=== PATIENT | female | born 1995 | race Caucasian/White ===

== ENCOUNTER 2016-12-11 05:52 | Emergency (ER) | payer OTHER ==
[~2016-12-11] VITALS: Ht 167.6 cm; Wt 57.5 kg
[2016-12-11 06:09] VITALS: Ht 167.6 cm; Wt 57.5 kg
[2016-12-11] MEDS ORDERED: SOD CHLORIDE 0.9% 1,000 ML IV STA (06:36)
--- NOTE | 2016-12-11 06:56 | RADRPT ---
PROCEDURE: XR Chest. CLINICAL INDICATION: Chest pain TECHNIQUE: A single AP view of the chest was obtained. COMPARISON: None. FINDINGS: No focal airspace opacification, pleural effusion or pneumothorax is seen. The cardiomediastinal si lhouette is within normal limits for size. The osseous structures are unremarkable. IMPRESSION: No radiographic evidence of acute cardiopulmonary disease. RPTAT: HH .Pam Harris MD, MD Date Time Electronically viewed and signed by .Pam Harris MD, on 12/11/2016 06:56 .G/
[2016-12-11] MEDS ORDERED: LORAZEPAM 2 MG INJ IV ONE (07:00)
[2016-12-11 07:29] LABS: CHLORIDE 102 mmol/L (97-110); POTASSIUM 3.7 mmol/L (3.5-5.1); SODIUM 145 mmol/L (135-144)
[2016-12-11 07:32] LABS: ANION GAP 22 (8-16); BLOOD UREA NITROGEN 8 mg/dl (7-20); CARBON DIOXIDE 25 mmol/L (21-31); CREATININE 0.73 mg/dl (0.44-1.00); GLUCOSE 115 mg/dl (70-220)
[2016-12-11 07:33] LABS: CALCIUM 9.3 mg/dl (8.4-10.2)
[2016-12-11 07:34] LABS: BASOPHILS % 0.7 % (0.0-2.0); EOSINOPHILS % 0.5 % (0.0-7.0); HEMATOCRIT 43.5 % (37.0-47.0); HEMOGLOBIN 14.8 g/dl (12.0-16.0); LYMPHOCYTES % 27.8 % (15.0-51.0); MEAN CORPUSCULAR HEMOGLOBIN 32.6 pg (29.0-33.0); MEAN CORPUSCULAR HGB CONC 34.1 g/dl (32.0-37.0); MEAN CORPUSCULAR VOLUME 95.7 fl (82.0-101.0); MEAN PLATELET VOLUME 7.9 fl (7.4-10.4); MONOCYTE # 0.3 10^3/ul (0.3-0.9); MONOCYTES % 3.6 % (0.0-11.0); NEUTROPHIL # 4.8 10^3/ul (1.6-7.5); NEUTROPHILS % 67.4 % (39.0-77.0); PLATELET COUNT 320 10^3/UL (140-440); RED BLOOD COUNT 4.55 10^6/ul (4.20-5.40); RED CELL DISTRIBUTION WIDTH 12.5 % (11.5-14.5); UNCORRECTED WBC 7.2 10^3/ul (4.8-10.8); WHITE BLOOD COUNT 7.2 10^3/ul (4.8-10.8)
[2016-12-11 07:36] LABS: CONDITION 1
[2016-12-11 07:40] LABS: BARBITURATES Negative (NEGATIVE)
[2016-12-11 07:46] LABS: BENZODIAZEPINES Negative (NEGATIVE); COCAINE Positive (NEGATIVE); OPIATES Negative (NEGATIVE)
[2016-12-11 08:37] LABS: TROPONIN-I < 0.012 ng/ml (0.00-0.12)
--- NOTE | 2016-12-11 08:39 | ERD ---
ER Documentation Chief Complaint Date/Time DATE: 12/11/16 TIME: 08:37 Chief Complaint FEELING DIZZY HPI This is a 21-year-old female presents to the emergency room for evaluation of anxiety, dizziness. Patient does state that she did a large amount of cocaine last night, she cannot say how much cocaine she did. She denies any alcohol use with cocaine and states that she did smoke marijuana as well. She denies any amphetamine abuse and came to the ER for evaluation. She does state that she is feeling anxious at this time. Denies any active chest pain. ROS All systems reviewed and are negative except as per history of present illness. Medications Home Meds No Active Prescriptions or Reported Meds Allergies Allergies: Coded Allergies: No Known Allergy (Unverified , 12/11/16) PMhx/Soc Medical and Surgical Hx: pt denies Medical Hx, pt denies Surgical Hx Hx Alcohol Use: Yes Hx Substance Use: Yes (marijuana, cocaine, poss.ecstasy) Hx Tobacco Use: Yes Smoking Status: Current some day smoker Physical Exam Vitals Vital Signs Date Time Temp Pulse Resp B/P Pulse Ox O2 Delivery O2 Flow Rate FiO2 12/11/16 06:40 124 16 178/111 100 Room Air 12/11/16 06:09 98.5 147 18 178/113 100 Physical Exam INITIAL VITAL SIGNS: Reviewed by me GENERAL: The patient is well developed and appropriate for usual state of health in no apparent distress HEENT: Dry mucous membranes, pupils equal, round, and reactive to light. EOMI. There is no scleral icterus. NECK: C-spine is soft and supple, there is no meningismus. There is no cervical lymphadenopathy. LUNGS: Clear to auscultation bilaterally. There are no rales, wheezes or rhonchi. HEART: Tachycardic no murmurs, clicks, rubs or gallops. ABDOMEN: Soft, non-tender, non-distended. There are bowel sounds in all four quadrants. No rebound or guarding. EXTREMITIES: There is no peripheral cyanosis or edema. No focal swelling or erythema. NEUROLOGICAL: The patient moves all four extremities with 5/5 strength. Cranial nerves II - XII are intact. Normal gait. Alert and oriented SKIN: There is no apparent rash or petechiae. HEME/LYMPHATIC: There is no evidence of excessive bruising or lymphedema. PSYCHIATRIC: The patient appears agitated Result Diagram: 12/11/16 0640 12/11/16 0640 Results 24 hrs Laboratory Tests Test 12/11/16 06:40 12/11/16 06:44 Anion Gap 22 Basophils # 0.010^3/ul Basophils % 0.7% Blood Urea Nitrogen 8mg/dl Calcium Level 9.3mg/dl Carbon Dioxide Level 25mmol/L Chloride Level 102mmol/L Creatinine 0.73mg/dl Eosinophils # 0.010^3/ul Eosinophils % 0.5% Glucose Level 115mg/dl Hematocrit 43.5% Hemoglobin 14.8g/dl Lymphocytes # 2.010^3/ul Lymphocytes % 27.8% Mean Corpuscular Hemoglobin 32.6pg Mean Corpuscular Hemoglobin Concent 34.1g/dl Mean Corpuscular Volume 95.7fl Mean Platelet Volume 7.9fl Monocytes # 0.310^3/ul Monocytes % 3.6% Neutrophils # 4.810^3/ul Neutrophils % 67.4% Nucleated Red Blood Cells # 0.010^3/ul Nucleated Red Blood Cells % 0.0/100WBC Platelet Count 97275^3/UL Potassium Level 3.7mmol/L Red Blood Count 4.5510^6/ul Red Cell Distribution Width 12.5% Sodium Level 145mmol/L Troponin I Pending White Blood Count 7.210^3/ul Urine Amphetamines Screen Negative Urine Barbiturates Negative Urine Benzodiazepines Screen Negative Urine Cannabinoids Positive Urine Cocaine Screen Positive Urine Opiates Screen Negative Current Medications Medications (Trade) Dose Ordered Sig/Raheem Route PRN Reason Start Time Stop Time Status Last Admin Dose Admin Sodium Chloride (NS) 1,000 ml @ 1,000 mls/hr Q1H STAT IV 12/11/16 06:36 12/11/16 07:35 DC 12/11/16 06:52 Lorazepam (Ativan) 1 mg ONCE ONCE IV 12/11/16 07:00 12/11/16 07:01 DC 12/11/16 06:52 Procedures/MDM EKG: Rate/Rhythm: Sinus tachycardia QRS, ST, T-waves: [No changes consistent w/ acute ischemia] Impression: [No evidence of ischemia or arrhythmia] Chest X-ray 1V Interpreted by me: Soft Tissue: No acute abnormalities Bones: No acute abnormalities Mediastinum/Cardiac Silhouette/Lungs: [No acute abnormalities] This 21-year-old female presents to the emergency room for evaluation of anxiety and feeling dizzy. This patient did state that she did cocaine last night. When I evaluated her she did have dry mucous membranes and was tachycardic. I did obtain lab work including a troponin which was normal. She was given 1 mg of Ativan IV. EKG shows sinus tachycardia. She is not hypoxic, x-ray is clear. The patient will be discharged home at this time with instructions to discontinue the use of cocaine as it can be toxic to her myocardium. Departure Diagnosis: Primary Impression: Cocaine abuse Additional Impressions: Dizziness Anxiety Condition: DAYTON Allan DO Dec 11, 2016 08:39
[2016-12-11 09:31] LABS: INR 0.89; PT RATIO 0.9
[2016-12-11 09:32] LABS: PARTIAL THROMBOPLASTIN TIME 22.1 Sec (25.0-35.0)
[2016-12-11 11:17] VITALS: BP 111/69; PULSE 112; RESP 18; TEMP 98.3
[2016-12-11 15:06] LABS: CANNABINOIDS Positive (NEGATIVE)
== END 2016-12-11 10:50 | disposition home or self-care (01) ==
LOC: E/R 05:52
DX: F14.10 Cocaine abuse, uncomplicated (principal); R40.2252 Coma scale, best verbal response, oriented, at arrival to emergency department; F41.9 Anxiety disorder, unspecified; F17.210 Nicotine dependence, cigarettes, uncomplicated; R40.2362 Coma scale, best motor response, obeys commands, at arrival to emergency department; R40.2142 Coma scale, eyes open, spontaneous, at arrival to emergency department; R07.9 Chest pain, unspecified
CPT/HCPCS: 36415; 71010; 80048; 80307; 84484; 85025; 85610; 85730; 93005; 96374; J2060; J7030; Z7502

== ENCOUNTER 2017-07-22 16:30 | Emergency (ER) | payer MEDICAID, OTHER ==
[~2017-07-22] VITALS: Ht 157.5 cm; Wt 59.5 kg
[2017-07-22 16:32] VITALS: Ht 157.5 cm; Wt 59.5 kg
--- NOTE | 2017-07-22 19:29 | RADRPT ---
PROCEDURE: US OB. CLINICAL INDICATION: Vaginal bleeding. Positive TECHNIQUE: Transabdominal and transvaginal views of the pelvis are available for review. COMPARISON: No prior studies are available for comparison. FINDINGS: Uterus: No evidence of masses and normal in size estimated at 8.9 x 7 x 6.1 cm. In the endocervical canal there is hypoechoic material within no associated blood flow likely blood clots within the ce rvix Endometrial cavity: There are 3 intrauterine gestational sacs and poles, triplets, with the f ollowing information: Embryo A: [place]-rump length:2.27 cm heart rate:179 bpm Gestational sac:4.00 cm Ultrasound estimated gestational age:8 weeks 4 days No evidence of subchorionic hemorrhage. Embryo B: [place]-rump length:0.99 cm heart rate:161 bpm Gestational sac:4.05 cm Ultrasound estimated gestational age:7 weeks 1 day No evidence of subchorionic hemorrhage. Embryo C: [place]-rump length:0.36 cm heart rate:NOT DETECTED Gestational sac:1.60 cm Ultrasound estimated gestational age:6 weeks Right ovary/adnexa: Ovarian size is normal estimated at 2.5 x 1.9 x 1.8 cm. No ovarian or adnexal mass lesion is seen. Left ovary/adnexa: Ovarian size normal estimated at 1.5 x 1.3 x 0.9 cm. No ovarian or adnexal mass lesion is seen. Cul-de-sac: There is no free fluid. RPTAT:HJJR IMPRESSION: 1. Triplet intrauterine pregnancies, the largest at an estimated gestational age of 8 weeks 4 days having a heart beat at 179 bpm. 2. Embryo C corresponds to an age of 6 weeks but no heart beat is detected raising concern for embr yonic demise. Follow-up evaluation is recommended. 3. Embryo B corresponds to a gestational age of 7 weeks 1 day with a detectable heart beat of 161 b pm. 4. No evidence of subchorionic hemorrhage. A small amount of blood clot is suspected within the ce rvix. Physician Jose Date Time Electronically viewed and signed by Physician Jose on 07/22/2017 19:29 /
--- NOTE | 2017-07-22 20:31 | ERD ---
ER Documentation Chief Complaint Date/Time DATE: 07/22/17 TIME: 20:24 Chief Complaint Sent from OB for eval and ultrasound HPI 22-year-old female patient who is a with no significant past medical history was sent here by her BEHAVIORAL HEALTH ASSOCIATE for a ultrasound. States that her last menstruation date was May 19, 2017. Reports that she could possibly have triplets. Reports that she has some slight bilateral pelvic pain but denies any vaginal bleeding. Denies any vaginal discharge, dysuria, urgency, frequency , hematuria, nausea, vomiting, diarrhea, constipation. ROS All systems reviewed and are negative except as per history of present illness. Medications Home Meds No Active Prescriptions or Reported Meds Allergies Allergies: Coded Allergies: No Known Allergy (Unverified , 12/11/16) PMhx/Soc History of Surgery: No Anesthesia Reaction: No Hx Neurological Disorder: No Hx Respiratory Disorders: No Hx Cardiac Disorders: No Hx Psychiatric Problems: No Hx Miscellaneous Medical Probl: No Hx Alcohol Use: Yes Hx Substance Use: Yes (marijuana, cocaine, poss.ecstasy) Hx Tobacco Use: Yes Smoking Status: Current every day smoker Physical Exam Vitals Vital Signs Date Time Temp Pulse Resp B/P Pulse Ox O2 Delivery O2 Flow Rate FiO2 07/22/17 16:32 98.3 86 20 131/78 98 Physical Exam Const: Aom-qyb-mcwaapiaz, well-nourished. In no acute distress. Head: Atraumatic, normocephalic Eyes: Normal Conjunctiva without injection. No purulent discharge. ENT: Normal external ear, nose. Moist oropharynx without tonsillar exudates. Non -erythematous pharynx. Uvula midline. No drooling. No trismus. Neck: No cervical midline tenderness. Full range of motion. No meningismus. No cervical lymphadenopathy. No JVD. Resp: Clear to auscultation bilaterally. No wheezing, rhonchi, rales, or crackles. No accessory muscle use. No retractions. Cardio: Regular rate and rhythm. No murmurs, rubs or gallops. Abd: Soft, non tender, non distended. Normal bowel sounds. No palpable masses. No rebound tenderness. No guarding. Negative McBurney's point. Negative psoas sign. Negative obturator sign. : See exam in MDM. Skin: No petechiae or rashes Back: No midline tenderness. No CVA tenderness. Ext: No cyanosis, or edema. Neur: Awake and alert. Normal gait. Normal coordination. Psych: Normal Mood and Affect Procedures/MDM 22-year-old female patient with no significant past medical history is a presents to the ED for a ultrasound. Patient is afebrile and nontoxic- appearing. Patient has normal vital signs. Pelvic ultrasound was ordered to further evaluate patient. Patient reports she already had urinalysis and blood work done at her BEHAVIORAL HEALTH ASSOCIATE's office today. PROCEDURE: US OB. CLINICAL INDICATION: Vaginal bleeding. Positive TECHNIQUE: Transabdominal and transvaginal views of the pelvis are available for review. COMPARISON: No prior studies are available for comparison. FINDINGS: Uterus: No evidence of masses and normal in size estimated at 8.9 x 7 x 6.1 cm. In the endocervical canal there is hypoechoic material within no associated blood flow likely blood clots within the cervix Endometrial cavity: There are 3 intrauterine gestational sacs and poles, triplets, with the following information: Embryo A: [place]-rump length: 2.27 cm heart rate: 179 bpm Gestational sac: 4.00 cm Ultrasound estimated gestational age: 8 weeks 4 days No evidence of subchorionic hemorrhage. Embryo B: [place]-rump length: 0.99 cm heart rate: 161 bpm Gestational sac: 4.05 cm Ultrasound estimated gestational age: 7 weeks 1 day No evidence of subchorionic hemorrhage. Embryo C: [place]-rump length: 0.36 cm heart rate: NOT DETECTED Gestational sac: 1.60 cm Ultrasound estimated gestational age: 6 weeks Right ovary/adnexa: Ovarian size is normal estimated at 2.5 x 1.9 x 1.8 cm. No ovarian or adnexal mass lesion is seen. Left ovary/adnexa: Ovarian size normal estimated at 1.5 x 1.3 x 0.9 cm. No ovarian or adnexal mass lesion is seen. Cul-de-sac: There is no free fluid. RPTAT:HJJR IMPRESSION: 1. Triplet intrauterine pregnancies, the largest at an estimated gestational age of 8 weeks 4 days having a heart beat at 179 bpm. 2. Embryo C corresponds to an age of 6 weeks but no heart beat is detected raising concern for embryonic demise. Follow-up evaluation is recommended. 3. Embryo B corresponds to a gestational age of 7 weeks 1 day with a detectable heart beat of 161 bpm. 4. No evidence of subchorionic hemorrhage. A small amount of blood clot is suspected within the cervix. Patient has 2 intrauterine pregnancies at 8 weeks and 4 days and 7 weeks, 1 day. Patient does have embryos C who is 6 weeks however no heartbeats are detected likely consistent with a embryonic demise. Low suspicion for symptomatic anemia, ectopic , sepsis, PID, appendicitis, ovarian torsion, tubo-ovarian abscess, surgical abdomen, or other emergent conditions. This was discussed with my supervising physician, Dr. Brown who agreed with the management and discharge plan. Patient to follow up with BEHAVIORAL HEALTH ASSOCIATE in 2 days for further evaluation and treatment. Patient is to return sooner to the ED for any worsening symptoms. Patient's questions were answered. Patient understood and agreed with discharge plan. Departure Diagnosis: Primary Impression: Encounter for ultrasound Condition: Stable Patient Instructions: : Your First Trimester Changes, Adapting to : First Trimester Referrals: [facility] YOU HAVE RECEIVED A MEDICAL SCREENING EXAM AND THE RESULTS INDICATE THAT YOU DO NOT HAVE A CONDITION THAT REQUIRES URGENT TREATMENT IN THE EMERGENCY DEPARTMENT. FURTHER EVALUATION AND TREATMENT OF YOUR CONDITION CAN WAIT UNTIL YOU ARE SEEN IN YOUR DOCTORS OFFICE WITHIN THE NEXT 1-2 DAYS. IT IS YOUR RESPONSIBILITY TO MAKE AN APPOINTMENT FOR FOLOW-UP CARE. IF YOU HAVE A PRIMARY DOCTOR --you should call your primary doctor and schedule an appointment IF YOU DO NOT HAVE A PRIMARY DOCTOR YOU CAN CALL OUR PHYSICIAN REFERRAL HOTLINE AT IF YOU CAN NOT AFFORD TO SEE A PHYSICIAN YOU CAN CHOSE FROM THE FOLLOWING [facility] CLINICS [facility] [address] [facility] [address] [facility]. [facility] [address] [facility] [address] [facility] [address] [facility]. [facility]. [address] [facility] YOU HAVE RECEIVED A MEDICAL SCREENING EXAM AND THE RESULTS INDICATE THAT YOU DO NOT HAVE A CONDITION THAT REQUIRES URGENT TREATMENT IN THE EMERGENCY DEPARTMENT. FURTHER EVALUATION AND TREATMENT OF YOUR CONDITION CAN WAIT UNTIL YOU ARE SEEN IN YOUR DOCTORS OFFICE WITHIN THE NEXT 1-2 DAYS. IT IS YOUR RESPONSIBILITY TO MAKE AN APPOINTMENT FOR FOLOW-UP CARE. IF YOU HAVE A PRIMARY DOCTOR --you should call your primary doctor and schedule and appointment IF YOU DO NOT HAVE A PRIMARY DOCTOR YOU CAN CALL OUR PHYSICIAN REFERRAL HOTLINE AT . IF YOU CAN NOT AFFORD TO SEE A PHYSICIAN YOU CAN CHOSE FROM THE FOLLOWING [facility] INSTITUTIONS: [facility] [address] [place] [address] [facility] [address] [place] [address] [facility] [address] [place] [address] [facility] URGENT CARE/[facility] [place] [address] [facility] [address] [place] [address] OFFICE FAX ALY GILBERT [address] [place] [address] [address]. MICHEL LOCO [address] [place] [address] RAMIRO DICKSON [address] [facility], [address] [address] [address] [address] [place] [address] [facility] [address] [place] [address] [address] [facility] [address] - NORMA OLIVIER [address], [facility] [address] [address] [address] [facility] [address], [facility] [address] [address] [address] [place] [address] [facility] Hours: 8:00 am - 5:00 pm Additional Instructions: Call your BEH[facility]IORAL HEALTH ASSOCIATE TOMORROW for an appointment during the next 2-3 days.See the doctor sooner or return here if your condition worsens before your appointment time - worsening vaginal bleeding, worsening abdominal pain, fever, vomiting, etc. JUAN DANIEL CHESTER PA-C Jul 22, 2017 20:31 JUAN DANIEL CHESTER PA-C Jul 22, 2017 20:31
== END 2017-07-22 22:35 | disposition left against medical advice (07) ==
LOC: FTE 16:30
DX: O26.891 Other specified pregnancy related conditions, first trimester (principal); R10.2 Pelvic and perineal pain; F17.210 Nicotine dependence, cigarettes, uncomplicated; O99.331 Smoking (tobacco) complicating pregnancy, first trimester; Z36 Encounter for antenatal screening of mother; Z3A.08 8 weeks gestation of pregnancy
CPT/HCPCS: 76801; 76817; Z7502